=== PATIENT | male | born 1935 ===

== ENCOUNTER 2017-06-23 14:16 | Observation (INO) | payer MEDICARE, BC ==
[2017-06-23 15:02] LABS: Hematocrit 39.5 % (42.0-52.0); Mean Platelet Volume 7.4 fL (7.4-10.4); Red Blood Cell (RBC) Count 4.16 mill/uL (4.70-6.10); White Blood Cell (WBC) Count 10.4 thou/uL (4.8-10.8)
[2017-06-23] MEDS ORDERED: Acetaminophen 500 MG TAB ONE (15:05)
[2017-06-23 15:19] LABS: Band 19 % (5-11); Neutrophil 75 % (42-75); Reactive Lymphocytes 2 % (0-10)
[2017-06-23 15:26] LABS: Troponin I Less than 0.010 ng/mL (< 0.028)
[2017-06-23 15:27] LABS: ALT (SGPT) 26 U/L (8-55); AST (SGOT) 22 U/L (5-34); Alkaline Phosphatase 125 U/L (40-150); Anion Gap 12 mmol/L (10-20); BUN (Urea Nitrogen) 19 mg/dL (8.4-25.7); Bilirubin, Total 0.8 mg/dL (0.2-1.2); CK (CPK) 43 U/L (30-200); Calc. Creatinine Clearance 0 mL/min (70-130); Calcium 9.5 mg/dL (7.8-10.44); Carbon Dioxide 24 mmol/L (23-31); Chloride 102 mmol/L (98-107); Estimated GFR-MDRD 68; Globulin 2.8 g/dL (2.4-3.5); Lipase 16 U/L (8-78); Protein, Total 6.5 g/dL (5.8-8.1)
--- NOTE | 2017-06-23 15:48 | RAD ---
PORTABLE CHEST: History: Cough, congestion, shortness of breath. FINDINGS: Lungs are clear. Heart and mediastinum are unremarkable. IMPRESSION: No acute abnormality. POS: [facility]
[2017-06-23 16:01] LABS: Bilirubin Negative (Negative); Blood, Urine Negative (Negative); Glucose, Urine (Dipstick) Negative (Negative); Ketone, Urine Negative (Negative); Nitrite Negative (Negative); Protein, Urine (Dipstick) Negative (Neg-Trace); Urobilinogen 0.2 mg/dL (0.2-1.0)
[2017-06-23] MEDS ORDERED: Acetaminophen 325 MG TAB PO PRN (20:29)
[2017-06-23] MEDS ORDERED: Sodium Chloride 0.9% 1,000 ML IV SCH (20:29)
[2017-06-23 22:09] VITALS: BMI 27.6
[2017-06-23 22:57] LABS: Troponin I 0.013 ng/mL (< 0.028)
--- NOTE | 2017-06-23 23:12 | HP-2 ---
CODE STATUS: DNR/DNI. PRIMARY CARE PHYSICIAN: Reji salgado. ATTENDING: Dr. Saini. RESIDENT: Delfin Russell MD. HISTORIAN: The patient. CHIEF COMPLAINT: Weakness and fever. HISTORY OF PRESENT ILLNESS: Vincent Steele is an 82-year-old man with past medical history of hypert ension who presents with 1-day history of generalized weakness. Patient is normally very active arou nd the house and even mows his own lawn. This morning, he had a harder time getting around the house and performing normal activities of daily living, so the family decided to bring him in. One of the family members who is a nurse, examined the patient at home and did not find any signs concerning fo r stroke. Patient denies any recent congestion, sore throat, chest pain, dyspnea, nausea, vomiting, diarrhea, abdominal pain, urinary issues, difficulty urinating, dysuria. Family states that patient is at baseline mental status. He had no confusion or slurred speech. In the ER, the patient receive d Rocephin, levofloxacin, Tylenol, and 1 liter bolus. PAST MEDICAL HISTORY: Hypertension. PAST SURGICAL HISTORY: Hernia repair. ALLERGIES: No known drug allergies. MEDICATIONS: 1. Doxazosin 4 mg p.o. daily. 2. Aspirin 81 mg p.o. daily. FAMILY HISTORY: Unremarkable. SOCIAL HISTORY: Patient denies any history of tobacco abuse and does not currently drink any alcohol and denies any history of drug use. He is and lives at home with his and he has pretty good family support. REVIEW OF SYSTEMS: Twelve-point review of systems including general, eyes, ENT, respiratory, CV, GI, , skin, musculoskeletal, neuro, and psych were all reviewed and were negative, unless otherwise st ated in the HPI. Patient also endorsed bilateral knee arthritis. PHYSICAL EXAMINATION: VITAL SIGNS: Blood pressure 126/68, pulse 84, respiratory rate 22, temperature 98.4, pulse ox 96% on room air. Current weight 79 kilograms. GENERAL: Patient is alert and oriented x3 in no acute distress. Well-developed, well-nourished, johann ropriately interactive. EYES: Pupils equal, round, reactive to light and accommodation. Extraocular muscles intact. Conjun ctivae within normal limits. ENT: Ruptured left tympanic membrane. Right tympanic membrane pearly dorantes without bulging or erythe ma. No discharge or signs of infection in left tympanic membrane. Nasal mucosa and oropharynx withi n normal limits. NECK: Supple without lymphadenopathy or thyromegaly. CARDIOVASCULAR: Regular rate and rhythm. No murmurs or gallops. Radial and pedal pulses equal bila terally. RESPIRATORY: Normal effort, no retractions. Lungs, clear to auscultation. SKIN: Warm and dry without cyanosis or lesions. ABDOMEN: Soft, nontender. Bowel sounds x4. No masses or distention. EXTREMITIES: No clubbing or cyanosis. Trace pitting edema in lower extremities. MUSCULOSKELETAL: Structure and tone within normal limits. Full range of motion. NEUROLOGIC: No focal deficits. Sensation within normal limits. PSYCHIATRIC: Appropriate. LABORATORY DATA: White blood cell count 10.4 with 75% neutrophils and 19% bands, hemoglobin 13.3, he matocrit 39.5, MCV 95, platelets 161. Sodium 134, potassium 3.6, chloride 102, carbon dioxide 24, BU N 19, creatinine 1.04, glucose 109, calcium 9.5. Total protein 6.5, albumin 3.7, AST 22, ALT 26, alk donald phosphatase 125, total bilirubin 0.8. Influenza A and B negative. CK 43, CK-MB 0.9, troponin I less than 0.01. Lipase 16. UA negative. EKG showed sinus tachycardia. Chest x-ray no acute card iopulmonary processes. ASSESSMENT AND PLAN: An 82-year-old man with 1-day history of weakness and fever of 102 in the ER. 1. Weakness, generalized: Placed on ARBs. Patient given Rocephin and levofloxacin in the ER. We w ill check labs in the morning, CBC, and CMP. One liter of normal saline given in the ER. Walking pr ogram. Fall precautions. 2. Febrile illness, systemic inflammatory response syndrome without a source: We will recheck CBC a nd monitor symptoms. UA was negative. Chest x-ray was negative. Blood and urine cultures are pendi ng. We will check a lactate. Start gentle IV fluids and normal saline at 100 mL an hour. 3. Hypertension. Restart home medications. Monitor vital signs. 4. Activity: Ad-nereyda with fall precautions and walking program and ambulate with assist. 5. Diet: Heart healthy. 6. Code status: DNR/DNI. DISPOSITION: Length of the hospital stay one day. Symptomatic medications will be provided. History and physical exam as well as management were discussed with Dr. Saini.
[2017-06-24 01:45] LABS: Troponin I 0.013 ng/mL (< 0.028)
[2017-06-24 05:05] LABS: #Lymphocytes 0.9 thou/uL (1.20-3.40); #Monocytes 0.5 thou/uL (0.11-0.59); %Basophils 0.3 % (0.0-1.0); %Eosinophils 0.6 % (0.0-10.0); %Lymphocytes 11.6 % (21.0-51.0); %Monocytes 6.9 % (0.0-10.0); Hematocrit 34.6 % (42.0-52.0); Mean Platelet Volume 7.7 fL (7.4-10.4); White Blood Cell (WBC) Count 7.4 thou/uL (4.8-10.8)
[2017-06-24 05:29] LABS: Anion Gap 11 mmol/L (10-20); BUN (Urea Nitrogen) 20 mg/dL (8.4-25.7); Calc. Creatinine Clearance 62 mL/min (70-130); Calcium 8.6 mg/dL (7.8-10.44); Carbon Dioxide 26 mmol/L (23-31); Chloride 107 mmol/L (98-107); Estimated GFR-MDRD 70
[2017-06-24 08:08] VITALS: BP 176/92
[2017-06-24 08:12] VITALS: TEMP 98.8
--- NOTE | 2017-06-24 08:58 | PDOC.FM ---
- Subjective Subjective: Patient is feeling great this morning and asking when he can go home. Ate a hamburger last night. NO complaints. No urinary symptoms, no abdominal pain, no headaache, no chest pain, no SOB, no neuro changes. - Objective Vital Signs & Weight: Vital Signs (12 hours) Temp Pulse Resp BP Pulse Ox 06/24/17 07:53 98.8 F 65 18 06/24/17 07:18 97.6 F 75 16 176/92 H 96 06/24/17 04:06 98.8 F 65 18 147/67 H 96 06/23/17 23:05 98.1 F 75 20 140/63 95 Weight Weight 80.104 kg I&O: 06/23/17 06/24/17 06/25/17 06:59 06:59 06:59 Intake Total 1178 Output Total 625 200 Balance 553 -200 Result Diagrams: 06/24/17 04:01 06/24/17 04:01 <Ly Campa A - Last Filed: 06/24/17 08:55> - Objective Vital Signs & Weight: Vital Signs (12 hours) Temp Pulse Resp BP Pulse Ox 06/24/17 07:53 98.8 F 65 18 06/24/17 07:18 97.6 F 75 16 176/92 H 96 06/24/17 04:06 98.8 F 65 18 147/67 H 96 Weight Weight 80.104 kg I&O: 06/23/17 06/24/17 06/25/17 06:59 06:59 06:59 Intake Total 1178 240 Output Total 625 500 Balance 553 -260 Result Diagrams: 06/24/17 04:01 06/24/17 04:01 <Donovan Scott - Last Filed: 06/24/17 12:17> Phys Exam - Physical Examination Constitutional: NAD Respiratory: no wheezing, no rales, no rhonchi, clear to auscultation bilateral Cardiovascular: RRR systolic murmur heard best at right 2nd intercostal space Gastrointestinal: soft, non-tender, no distention, positive bowel sounds Musculoskeletal: no edema Neurological: non-focal, normal sensation, moves all 4 limbs Psychiatric: normal affect, A&O x 3 Skin: no rash, cap refill <2 seconds <Ly Campa - Last Filed: 06/24/17 08:55> Dx/Plan (1) Fever and chills Code(s): R50.9 - FEVER, UNSPECIFIED Status: Acute Plan: No current source for fever and patient asymptomatic. Afebrile since arrival to floor. S/P rocephin and levaquin. Blood cx NGTD. Urine cultures NGTD. Flu negative. Likely dc with precautions later today. (2) Benign prostate hyperplasia Code(s): N40.0 - BENIGN PROSTATIC HYPERPLASIA WITHOUT LOWER URINRY TRACT SYMP Status: Acute QualifierTitle: Lower urinary tract symptom presence: symptoms absent Qualified Code(s): N40.0 - Benign prostatic hyperplasia without lower urinary tract symptoms Plan: cont flomax. (3) Elevated blood-pressure reading without diagnosis of hypertension Code(s): R03.0 - ELEVATED BLOOD-PRESSURE READING, W/O DIAGNOSIS OF HTN Status : Acute Plan: Recommend outpatient follow up for monitoring. <Ly Campa A - Last Filed: 06/24/17 08:55> Attending Addendum - Attending Addendum I personally evaluated the patient and discussed the management with Dr. Campa. I agree with the History, Examination, Assessment and Plan documented above with any addition or exceptions noted below. Patient here with Influenza and tachycardia. Will begin treatment with Tamiflu and fluid hydrate patient. Recheck BMP this afternoon to ensure renal function recovering from his likely ARTI. Possible discharge later today if appears well on clinical exam. <Donovan Scott - Last Filed: 06/24/17 12:17>
[2017-06-24] MEDS ORDERED: Enoxaparin Sodium 30 MG/0.3 ML SYRINGE SC SCH (09:00)
[2017-06-24] MEDS ORDERED: Doxazosin Mesylate 4 MG TAB PO SCH (10:15)
[2017-06-24] MEDS ORDERED: Aspirin 81 mg Enteric Coated Tablet PO SCH (10:15)
[2017-06-25] MEDS ORDERED: Aspirin 81 mg Enteric Coated Tablet PO SCH (09:00)
[2017-06-25] MEDS ORDERED: Doxazosin Mesylate 4 MG TAB PO SCH (09:00)
[2017-06-25 14:19] LABS: Folate,Hemolysate 363.3 ng/mL (Not Estab.); Hematocrit 34.2 % (37.5-51.0); RBC Folate Test Component 1062 ng/mL (>498)
--- NOTE | 2017-06-26 22:54 | DIS-2 ---
SUMMARY OF STAY The patient left the hospital AMA DATE OF ADMISSION: 06/23/2017 DATE OF PATIENT LEAVING THE HOSPITAL AMA: 06/24/2017. ADMITTING ATTENDING: Dr. Cooper Saini. RESIDENT: Dr. Ly Campa. PRIMARY DIAGNOSES: 1. Fever. 2. Hypertension. DISCHARGE MEDICATIONS: 1. Doxazosin 4 mg p.o. daily. 2. Aspirin 81 mg p.o. daily. HISTORY OF PRESENT ILLNESS AND HOSPITAL COURSE: This is an 82-year-old male with past medical histor y of hypertension, who presented to the ER for complaints of generalized weakness and was found to valles ve a fever upon admission. The patient was negative for influenza and had negative blood cultures at 48 hours as well as a negative urine culture. The patient had no obvious source of the fever and valles d no complaints other than just kind of feeling generalized weakness. The following morning, the pat ient felt much better and was very eager to leave the hospital. The patient was opposed with the j carlos a of running a respiratory viral panel, but did not want to wait on this, so chose to leave the [facility] against medical advice. DISPOSITION: Discharged to home. DISCHARGE FOLLOWUP: The patient was recommended to follow up within 1-2 days at [facility] .
== END 2017-06-24 11:00 | disposition left against medical advice (07) ==
LOC: ERS 14:16 → 2SW 18:50
PROVIDERS: ADMIT Family Medicine; ATTEND Family Medicine
DX: R50.9 Fever, unspecified (principal); I10 Essential (primary) hypertension; N40.0 Benign prostatic hyperplasia without lower urinary tract symptoms; Z79.82 Long term (current) use of aspirin; Z79.899 Other long term (current) drug therapy; Z98.42 Cataract extraction status, left eye; Z98.41 Cataract extraction status, right eye; Z98.890 Other specified postprocedural states; Z53.21 Procedure and treatment not carried out due to patient leaving prior to being seen by health care provider
CPT/HCPCS: 71010; 80048; 80053; 81003; 82550; 82553; 82607; 82747; 83605; 83690; 83880; 83921; 84484 ×3; 85014; 85025 ×2; 87040; 87086; 87804 ×2; 93005; 94760; 96361 ×3; 96365; 96366; 96375; 97139; 99285; G0378; 36415; J0696; J1956